=== PATIENT | female | born 1965 | race Caucasian/White ===

== ENCOUNTER 2018-04-04 05:24 | Inpatient (IN) | payer OTHER ==
[~2018-04-04] VITALS: Ht 172.7 cm; Wt 56.2 kg
[2018-04-04 05:24] VITALS: BP 194/115
--- NOTE | 2018-04-04 05:24 | NUR ---
Patient noted to have existing wounds upon arrival to ER. Photos taken of wound and placed in chart. Wound covered with dressing. Physician informed.
--- NOTE | 2018-04-04 05:24 | NUR ---
Patient BIBA BLS accompanied by [place] [employer], transferred to bed 5. RN evaluating patient at bedside.
--- NOTE | 2018-04-04 05:28 | NUR ---
Dr. Rodriguez evaluating patient at bedside.
--- NOTE | 2018-04-04 05:30 | NUR ---
PT BIB AMBULANCE FROM [facility] FOR CELLULITIS ON R GREAT TOE. PT REPORTS PAIN AT 2/10, PT UNABLE TO DESCRIBE PAIN. TOE IS SWOLLEN, DISCOLORED, WITH OPEN WOUND ON DORSAL SURFACE OF GREAT TOE THAT WRAPS IN BETWEEN 1ST AND 2ND TOE, MINIMAL PURULENT DRAINAGE PRESENT, SLIGHT ODOR PRESENT. WOUND MEASURES [id number]. GEO PUT PT ON 5150 HOLD FOR GD. SECURITY TOOK PT MIGUE MEIER SITTING 1-1. ER TO SEE PT. SAFETY PRECAUTIONS IN PLACE. WILL CONTINUE TO MONITOR.
[2018-04-04] MEDS ORDERED: PIPERACILLIN/TAZOBACTAM 3.375 GM in DEXTROSE 5% 50 ML IV ONE (05:35)
[2018-04-04] MEDS ORDERED: VANCOMYCIN 1,000 MG in DEXTROSE 5% 250 ML IV ONE (05:35)
[2018-04-04] MEDS ORDERED: NACL 0.9% 1,000 ML IV ONE (05:40)
[2018-04-04] MEDS ORDERED: METF850T PO (05:48)
[2018-04-04] MEDS ORDERED: PIPERACILLIN/TAZOBACTAM 3.375 GM VIAL IV ONE (05:49)
[2018-04-04] MEDS ORDERED: CLON0.1T42 PO (05:49)
[2018-04-04] MEDS ORDERED: DOCU1POW (05:51)
[2018-04-04] MEDS ORDERED: RANI150C PO (05:51)
[2018-04-04] MEDS ORDERED: RANI15SY PO (05:51)
[2018-04-04] MEDS ORDERED: IBUP-2213 PO (05:53)
[2018-04-04] MEDS ORDERED: LOSA50TA66 PO (05:54)
[2018-04-04] MEDS ORDERED: SIMV20TA1 PO (05:55)
[2018-04-04] MEDS ORDERED: ASPI81EC98 PO (05:56)
[2018-04-04 06:32] LABS: APPEARANCE,URINE HAZY (CLEAR); COLOR,URINE YELLOW (YELLOW); UGLUCOSE 3+ (NEGATIVE)
[2018-04-04 06:33] LABS: BILIRUBIN,URINE NEGATIVE (NEGATIVE); BLOOD, URINE 1+ (NEGATIVE); LEUKOCYTE ESTERASE ,URINE TRACE (NEGATIVE); NITRITE, URINE POSITIVE (NEGATIVE)
[2018-04-04 06:45] LABS: BASOPHILS # (AUTO) 0.1 K/uL (0.00-0.22); BASOPHILS % (AUTO) 0.8 % (0.0-2.0); EOSINOPHILS # (AUTO) 0.1 K/uL (0-0.4); EOSINOPHILS % (AUTO) 0.9 % (0.0-4.0); HEMATOCRIT 29.3 % (36-48); HEMOGLOBIN 9.7 g/dL (12.0-16.0); LYMPHOCYTES # (AUTO) 1.6 K/uL (2.5-16.5); LYMPHOCYTES % (AUTO) 15.3 % (20.5-51.1); MEAN CORPUSCULAR HEMOGLOBIN 30 pg (27-31); MEAN CORPUSCULAR HGB CONC 33 g/dL (33-37); MEAN CORPUSCULAR VOLUME 90.2 fL (80-94); MONOCYTES # (AUTO) 0.5 K/uL (0.8-1.0); MONOCYTES % (AUTO) 4.6 % (1.7-9.3); NEUTROPHILS # (AUTO) 8.3 K/uL (1.8-7.7); NEUTROPHILS % (AUTO) 78.4 % (42.2-75.2); PLATELET COUNT (AUTO) 432 K/uL (140-450); RED BLOOD CELL COUNT(AUTO) 3.24 MIL/uL (4.20-5.40); RED CELL DISTRIBUTION WIDTH 13.3 % (11.6-13.7); WHITE BLOOD COUNT (AUTO) 10.5 K/uL (4.8-10.8)
[2018-04-04] MEDS ORDERED: VANCOMYCIN 1,000 MG VIAL ONE (06:45)
[2018-04-04 06:49] LABS: RBC,URINE 3-10 (FEW) /HPF (0-5)
[2018-04-04 06:52] LABS: ANION GAP 11.9 (8-16); CARBON DIOXIDE 28.2 mmol/L (21-32); CHLORIDE 100 mmol/L (98-107); CREATININE 1.2 mg/dL (0.6-1.3); GFR ARICAN-AMERICAN 60 mL/min (>90); GLUCOSE 270 mg/dL (74-106); POTASSIUM 4.1 mmol/L (3.5-5.1); SODIUM SERUM 136 mmol/L (136-145); UREA NITROGEN, BLOOD 25 mg/dL (7-18)
--- NOTE | 2018-04-04 06:55 | NUR ---
Patient noted to have existing wounds upon arrival to ER. Photos taken of wound and placed in chart. Wound covered with dressing. Physician informed.
[2018-04-04 06:57] LABS: ALBUMIN 3.1 g/dL (3.4-5.0); ASPARTATE AMINOTRANSFERASE 16 U/L (15-37); TOTAL BILIRUBIN 0.2 mg/dL (0.0-1.0)
[2018-04-04 06:58] LABS: SALICYLATE < 2.8 mg/dL (2.8-20.0)
[2018-04-04 06:59] LABS: ACETAMINOPHEN < 0.5 ug/ml (10-30)
[2018-04-04 07:06] LABS: BARBITURATE, URINE NEG. ng/ml (NEG <=200); BENZODIAZEPINE, URINE NEG. ng/mL (NEG <=200); CANNABINOID, URINE NEG. ng/mL (NEG <=50); COCAINE, URINE NEG. ng/mL (NEG <=300); OPIATE, URINE NEG. ng/mL (NEG <=2000); PHENCYCLIDINE SCREEN,URINE NEG. ng/mL (NEG <=25)
--- NOTE | 2018-04-04 07:19 | NUR ---
GAVE REPORT TO LOVE ALMARAZ
--- NOTE | 2018-04-04 07:31 | NUR ---
Pt resting on bed. EMT at bedside.
[2018-04-04] MEDS ORDERED: ONDANSETRON 4 MG/2 ML VIAL IVP PRN (08:00)
[2018-04-04] MEDS ORDERED: HYDROcodone/APAP 5/325 MG 1 TAB TAB PO PRN ×2 (08:00)
[2018-04-04] MEDS ORDERED: LORazepam 2 MG/ML VIAL IVP PRN (08:00)
[2018-04-04] MEDS ORDERED: DEXTROSE 50% 50 ML SYR IVP PRN (08:00)
[2018-04-04] MEDS ORDERED: cloNIDine 0.1 MG TAB PO PRN (08:00)
[2018-04-04] MEDS ORDERED: ACETAMINOPHEN 325 MG TAB PO PRN (08:00)
--- NOTE | 2018-04-04 08:34 | NUR ---
PT TAKEN TO MED FLOOR BY RUFINA ALEMAN AND EMT EFRAÍN
[2018-04-04 08:40] VITALS: BP 159/69
--- NOTE | 2018-04-04 08:40 | NUR ---
RECEIVED REPORT FROM ED RUFINA ALEMAN. PT IN STABLE CONDITION. AOX3. DX RIGHT TOE OSTEOMYELITIS WITH OPEN WOUND. DRESSING APPLIED IN ED C/D/I. PT STATES SHE HIT HER RT BIG TOE THIS MORNING BUT THERE WAS A CHRONIC WOUND THERE BEFORE. SCAB ON LLE. SEEN AMBULATING FROM GURNEY TO BED WITH ASSIST. PT IS LEGALLY BLIND. LEGALLY BLIND SIGN PLACED ON WALL BY BEDSIDE. NO C/O PAIN OR DISCOMFORT AT THIS TIME. ALL SAFETY PRECAUTIONS IN PLACE, WILL CONTINUE TO MONITOR. Addendum: 04/04/18 at 1728 by Catalina Gloria Meng, RN IV SITE PATENT AND ASYMPTOMATIC, ON SL.
--- NOTE | 2018-04-04 08:44 | NUR ---
Patient will be admitted to care of DR KARIMI. Admited to [facility]. Will go to room 110 B. Belongings list completed. Report to RUFINA FRENCH.
[2018-04-04] MEDS ORDERED: NON-FORMULARY ITEM (Ranitidine HCl (Ranitidine Hcl) 1 CAP) PO SCH (09:00)
[2018-04-04] MEDS ORDERED: ENOXAPARIN 40 MG/0.4 ML SYR SUBQ SCH (09:00)
[2018-04-04] MEDS: DOCUSATE 100 MG/10 ML UDC PO SCH ×2 (10:19→20:38)
[2018-04-04] MEDS: NACL 0.9% 1,000 ML IV SCH (10:19)
[2018-04-04] MEDS: FAMOTIDINE 20 MG TAB PO SCH ×2 (10:20→20:38)
[2018-04-04] MEDS: LOSARTAN 50 MG TAB PO SCH (10:20)
--- NOTE | 2018-04-04 10:39 | NUR ---
CALLED AND ASKED SECURITY TO BRING PATIENT BELONGINGS TO FLOOR. PT NEEDS CELLPHONE TO CALL FAMILY. COLD MILL OPERATOR ALESSIA GABRIEL.
--- NOTE | 2018-04-04 10:53 | NUR ---
FIELD ASSISTANT HERE TO SEE PATIENT.
[2018-04-04] MEDS: INSULIN LISPRO SLIDING SCALE 100 UNITS/ML VIAL SUBQ PRN ×3 (11:57→20:55)
[2018-04-04] MEDS: BLOOD GLUCOSE MONITORING 1 DEV DEV FS SCH ×3 (11:57→20:38)
--- NOTE | 2018-04-04 13:31 | NUR ---
AD TERMINAL MAKEUP OPERATOR HERE FOR US VENOUS AND ARTERIAL.
--- NOTE | 2018-04-04 13:36 | NUR ---
PATIENT HAS BEEN SCREENED AND CATEGORIZED HIGH NUTRITION RISK. PATIENT WILL BE SEEN WITHIN 1-2 DAYS OF ADMISSION. 04/05/18 04/06/18 CLAIRE BORJA MBA, RD
[2018-04-04 16:00] VITALS: BP 135/66
--- NOTE | 2018-04-04 19:20 | NUR ---
ENDORSED POC TO RN CLINICAL REVIEW RN KAUSHIK AT BEDSIDE. PT IN STABLE CONDITION.
--- NOTE | 2018-04-04 19:22 | NUR ---
RECEIVED PT IN STABLE CONDITION FROM AM NURSE. AWAKE ,ALERT AND ORIENTED . ,MED SURG PT. ON FALL PRECAUTION DUE TO WEAKNESS ON THE RT FOOT AND LEGALLY BLIND. HAS IVF INFUSING WELL ON THE RT FA #[id number]. CLEAR AND PATENT. RT FOOT WITH DRESSING DRY AND INTACT. PLAN OF CARE DISCUSSED AND VERBALIZED UNDERSTANDING. BED ON LOW POSITION. FREQUENT ROUNDS NEEDED. CALL LIGHT PLACED WITHIN EASY REACH. WILL CONTINUE TO MONITOR.
[2018-04-04] MEDS: SIMVASTATIN 20 MG TAB PO SCH (20:39)
--- NOTE | 2018-04-04 20:45 | NUR ---
ASSISTED UP TO THE BATHROOM. VOIDED. THEN BACK TO BED WITH STANDBY ASSISTANCE.
--- NOTE | 2018-04-04 20:55 | NUR ---
BLOOD SUGAR WAS CHECKED RESULT 254. INSULIN COVERAGE GIVEN SUBQ, PT HAD HER OWN SANDWICH FOR HS SNACK. WILL CONTINUE TO MONITOR.
--- NOTE | 2018-04-04 22:00 | NUR ---
PT SLEEPING AT THIS TIME. NO S/S OF ANY DISCOMFORT NOTED.
--- NOTE | 2018-04-04 23:00 | NUR ---
SLEEPING WELL. NO S/S PAIN NOR DISCOMFORT. WILL CONTINUE TO MONITOR.
[2018-04-04 23:11] VITALS: BP 155/77
--- NOTE | 2018-04-04 23:35 | NUR ---
PT VERY UNSTEADY , LEGALLY BLIND. PROVIDED A BEDSIDE COMMODE. INSTRUCTED PT TO STILL CALL IF NEED TO GET UP . VERBALIZED UNDERSTANDING.
--- NOTE | 2018-04-05 01:00 | NUR ---
PT SLEEPING WELL AT THIS TIME. NO S/S OF APIN NOTED. WILL CONTINUE TO MONITOR.
--- NOTE | 2018-04-05 03:00 | NUR ---
SLEEPING WELL AT THIS TIME. NO S/S OF ANY DISCOMFORT NOR PAIN NOTED.
--- NOTE | 2018-04-05 05:00 | NUR ---
ASSISTED UP TO THE BSC. VOIDED WELL.
[2018-04-05] MEDS: NACL 0.9% 1,000 ML IV SCH (06:00)
--- NOTE | 2018-04-05 06:00 | NUR ---
TRANSFERRED TO ROOM 124 A. BED ALARM ON AND IN LOWEST POSITION. BSC AND CALL LIGHT PLACED WITHIN EASY REACH. INSTRUCTED TO CALL,NOT TO GET UP WITHOUT ANY NURSE IN ATTENDANCE.
[2018-04-05] MEDS: BLOOD GLUCOSE MONITORING 1 DEV DEV FS SCH ×4 (06:26→20:19)
[2018-04-05] MEDS: INSULIN LISPRO SLIDING SCALE 100 UNITS/ML VIAL SUBQ PRN ×3 (06:29→17:26)
--- NOTE | 2018-04-05 06:29 | NUR ---
BLOOD SUGAR THIS AM 232. 4 UNITS HUMALOG SUBQ GIVEN.
[2018-04-05 07:05] LABS: BASOPHILS # (AUTO) 0.1 K/uL (0.00-0.22); BASOPHILS % (AUTO) 1.1 % (0.0-2.0); EOSINOPHILS # (AUTO) 0.1 K/uL (0-0.4); EOSINOPHILS % (AUTO) 2.9 % (0.0-4.0); HEMATOCRIT 27.9 % (36-48); HEMOGLOBIN 9.1 g/dL (12.0-16.0); LYMPHOCYTES # (AUTO) 1.8 K/uL (2.5-16.5); LYMPHOCYTES % (AUTO) 35.7 % (20.5-51.1); MEAN CORPUSCULAR HEMOGLOBIN 30 pg (27-31); MEAN CORPUSCULAR HGB CONC 33 g/dL (33-37); MEAN CORPUSCULAR VOLUME 90.7 fL (80-94); MONOCYTES # (AUTO) 0.4 K/uL (0.8-1.0); MONOCYTES % (AUTO) 7.3 % (1.7-9.3); NEUTROPHILS # (AUTO) 2.6 K/uL (1.8-7.7); PLATELET COUNT (AUTO) 364 K/uL (140-450); RED BLOOD CELL COUNT(AUTO) 3.08 MIL/uL (4.20-5.40); RED CELL DISTRIBUTION WIDTH 13.5 % (11.6-13.7)
--- NOTE | 2018-04-05 07:18 | NUR ---
ENDORSED PT IN STABLE CONDITION TO AM NURSE.
--- NOTE | 2018-04-05 07:20 | NUR ---
RECEIVED PT FROM SENIOR MECHANICAL DEVELOPMENT ENGINEER NURSEKAUSHIK, PT IS LEGALLY BLIND AND IS AWAKE AND SEATED ON THE BED WITH SIDE RAILS UP AND CALL LIGHT WITHIN REACH, FALL PRECAUTION ENFORCED, DRESSING BANDAGE NOTED ON THE RT BIG TOE. PT HAS AN IV LINE ON THE RT FA G. 22 WITH NS AT 50ML/HR INFUSING AND INTACT. PT DENIES PAIN AND NO SOB NOTED. BEDSIDE COMMODE IN PLACE AND NO SIGN OF DISTRESS NOTED AND WILL CONTINUE TO MONITOR PT.
[2018-04-05 07:33] LABS: ALBUMIN 2.4 g/dL (3.4-5.0); ANION GAP -3.9 (8-16); CARBON DIOXIDE 28.8 mmol/L (21-32); CREATININE 1.1 mg/dL (0.6-1.3); MAGNESIUM 1.7 mg/dL (1.8-2.4); PHOSPHORUS 3.5 mg/dL (2.5-4.9); POTASSIUM 3.9 mmol/L (3.5-5.1); TOTAL BILIRUBIN 0.3 mg/dL (0.0-1.0)
[2018-04-05 08:00] VITALS: BP 156/77
[2018-04-05] MEDS: FAMOTIDINE 20 MG TAB PO SCH ×2 (09:18→20:20)
[2018-04-05] MEDS: ASPIRIN 81 MG TAB.CHEW PO SCH (09:19)
[2018-04-05] MEDS: DOCUSATE 100 MG/10 ML UDC PO SCH ×2 (09:19→20:20)
[2018-04-05] MEDS: LOSARTAN 50 MG TAB PO SCH (09:19)
--- NOTE | 2018-04-05 09:32 | NUR ---
PT IS AWAKE AND SEATED ON THE BED, MEDICATIONS GIVEN AND PT TOLERATED IT. NO SIGN OF DISTRESS NOED AND WILL CONTINUE TO MONITOR PT.
[2018-04-05] MEDS ORDERED: MAG SULF 2000 MG/WATER PREMIX 50 ML IV PRN (09:45)
[2018-04-05] MEDS ORDERED: VANCOMYCIN PER PHARMACY MC PRN (10:15)
[2018-04-05] MEDS ORDERED: PIPER/TAZO 3.375GM/D5W PREMIX 50 ML IV SCH (12:00)
--- NOTE | 2018-04-05 12:15 | NUR ---
PT IS AWAKE AND BLOOD GLUCOSE WAS CHECKED AND RESULT IS 275, 6 UNITS OF INSULIN WAS GIVEN ON THE LEFT UA, PT' WAS ASSISTED TO EAT HER LUNCH. NO SIGN OF DISTRESS NOTED AND WILL CONTINUE TO MONITOR PT.
[2018-04-05] MEDS: PIPER/TAZO 3.375GM/D5W PREMIX 50 ML IV SCH ×2 (12:58→17:22)
[2018-04-05] MEDS: VANCOMYCIN 500 MG in NACL 0.9% 100 ML IV SCH (14:20)
[2018-04-05 16:00] VITALS: BP 117/64
--- NOTE | 2018-04-05 17:27 | NUR ---
PT IS AWAKE AND SEATED ON THE BED, VITAL SIGNS TAKEN AND IV MEDICATION WAS GIVEN, BLOOD GLUCOSE CHECK DONE AND RESULT IS 153 AND INSULIN 2 UNITS AND PT TOLERATED IT. NO SIGN OF DISTRESS NOTED. WILL CONTINUE TO MONITOR PT.
--- NOTE | 2018-04-05 19:20 | NUR ---
ENDORSED PT TO POLICE WORKER NURSE, TIMA, FOR CONTINUITY OF CARE, PT IS STABLE AT THIS TIME.
--- NOTE | 2018-04-05 19:20 | NUR ---
RECEIVED ENDORSEMENT FROM ALONSO ALMARAZ DAYSHIFT NURSE AT BEDSIDE FOR CONTINUITY OF CARE, PT IN STABLE CONDITION.
--- NOTE | 2018-04-05 20:00 | NUR ---
PT ASSISTED TO THE COMMODE AND BACK TO BED. BED LOW AND ALL FALLS PRECAUTIONS IN PLACE. V/S FOLLOWS T 98.1 P 66 R 18 B/P 157/82 02 96% ON R/A. PT FINGERSTICK IS 147 NO COVERAGE NEEDED.
[2018-04-05] MEDS: SIMVASTATIN 20 MG TAB PO SCH (20:20)
--- NOTE | 2018-04-05 21:00 | NUR ---
X-RAY AT BEDSIDE . PT GIVEN ALL SCHEDULED MEDS. ALL REQUESTED NEEDS ATTENDED.
--- NOTE | 2018-04-05 21:30 | NUR ---
PT GIVEN DIABETIC SCHEDULED SNACK AND REQUESTED TEA. PT AWARE OF NPO STATUS AFTER MIDNIGHT. ALL FALLS PRECAUTIONS IN PLACE, AND CALL MATHIS IN REACH.
--- NOTE | 2018-04-05 23:50 | NUR ---
PT V/S FOLLOWS T 97.5 P 68 R 18 B/P 173/95 02 97% ON R/A. PT GIVEN PRN CATAPRES PO/PRN FOR HTN. WILL CONTINUE TO MONITOR B/P. PT WAS ALSO ASSISTED TO COMMODE AND BACK. PT IN BED NO S/S OF PAIN OR DISTRESS. ALL FALLS PRECAUTIONS IN PLACE.
[2018-04-06] VITALS: BP 173/95
[2018-04-06] MEDS: VANCOMYCIN 500 MG in NACL 0.9% 100 ML IV SCH (00:32)
[2018-04-06] MEDS: PIPER/TAZO 3.375GM/D5W PREMIX 50 ML IV SCH ×5 (01:51→23:14)
[2018-04-06] MEDS: NACL 0.9% 1,000 ML IV SCH (02:00)
--- NOTE | 2018-04-06 03:02 | NUR ---
B/P RETAKEN ITS 163/74. WILL CONTINUE TO MONITOR B/P.
--- NOTE | 2018-04-06 05:47 | NUR ---
MARILYN HUNG ORDERED.
[2018-04-06] MEDS: BLOOD GLUCOSE MONITORING 1 DEV DEV FS SCH ×4 (06:54→21:11)
[2018-04-06] MEDS: INSULIN LISPRO SLIDING SCALE 100 UNITS/ML VIAL SUBQ PRN ×3 (06:55→21:11)
--- NOTE | 2018-04-06 07:02 | NUR ---
AM FINGERSTICK IS 202 PT GIVEN 4 UNITS HUMALOG COVERAGE. LAST B/P 125/70
[2018-04-06 07:20] LABS: BASOPHILS # (AUTO) 0.1 K/uL (0.00-0.22); BASOPHILS % (AUTO) 1.4 % (0.0-2.0); EOSINOPHILS # (AUTO) 0.1 K/uL (0-0.4); EOSINOPHILS % (AUTO) 2.5 % (0.0-4.0); HEMATOCRIT 26.7 % (36-48); HEMOGLOBIN 8.8 g/dL (12.0-16.0); LYMPHOCYTES # (AUTO) 1.6 K/uL (2.5-16.5); MEAN CORPUSCULAR HEMOGLOBIN 30 pg (27-31); MEAN CORPUSCULAR HGB CONC 33 g/dL (33-37); MEAN CORPUSCULAR VOLUME 90.9 fL (80-94); MONOCYTES # (AUTO) 0.4 K/uL (0.8-1.0); MONOCYTES % (AUTO) 6.9 % (1.7-9.3); NEUTROPHILS % (AUTO) 58.2 % (42.2-75.2); PLATELET COUNT (AUTO) 332 K/uL (140-450); RED BLOOD CELL COUNT(AUTO) 2.94 MIL/uL (4.20-5.40); RED CELL DISTRIBUTION WIDTH 13.6 % (11.6-13.7); WHITE BLOOD COUNT (AUTO) 5.2 K/uL (4.8-10.8)
--- NOTE | 2018-04-06 07:28 | NUR ---
REPORT GIVEN TO PETEY RN AND GERARDO RN DAYSHIFT NURSES AT BEDSIDE FOPR CONTINUITY OF CARE, PT IN STABLE CONDITION.
--- NOTE | 2018-04-06 07:30 | NUR ---
RECEIVED BEDSIDE REPORT FROM MARINE EQUIPMENT SALES ENGINEER NURSE. PATIENT IS AOX4. NO SIGNS OF DISTRESS IN RA. R BIG TOE WOUND NOTICED. SCHEDULED FOR TOE AMPUTATION TODAY. IV SITE IS PATENT, INTACT AND CLEAN. DENIES OF PAIN. RESPIRATION IS EVEN, UNLABORED ON ROOM AIR. REVIEWED PLAN OF CARE WITH PATIENT. PATIENT VERBALIZED UNDERSTANDING. BED IN LOW POSITION. WILL CONTINUE TO MONITOR.
[2018-04-06 07:34] LABS: ALBUMIN 2.4 g/dL (3.4-5.0); ANION GAP 9.8 (8-16); CARBON DIOXIDE 28.4 mmol/L (21-32); CREATININE 1.2 mg/dL (0.6-1.3); POTASSIUM 4.2 mmol/L (3.5-5.1); TOTAL BILIRUBIN 0.6 mg/dL (0.0-1.0)
[2018-04-06 08:00] VITALS: BP 125/71
[2018-04-06] MEDS: ASPIRIN 81 MG TAB.CHEW PO SCH (09:00)
[2018-04-06] MEDS: DOCUSATE 100 MG/10 ML UDC PO SCH ×2 (09:00→21:05)
[2018-04-06] MEDS: LOSARTAN 50 MG TAB PO SCH (09:00)
[2018-04-06] MEDS: FAMOTIDINE 20 MG TAB PO SCH ×2 (09:00→21:05)
--- NOTE | 2018-04-06 09:52 | NUR ---
WITHHELD 0900 SCHEDULED MEDS DUE TO NPO. NO SIGNS OF DISTRESS. PATIENT IS RESPITE WORKER BY OR NURSES FOR PROCEDURE. .
--- NOTE | 2018-04-06 10:00 | NUR ---
OR NURSES AT BEDSIDE READY TO TAKE PATIENT DOWN FOR RIGHT TOE AMPUTATION SURGERY. WILL CONTINUE TO MONITOR.
[2018-04-06] MEDS ORDERED: LIDOCAINE 1% 50 ML ONE (10:08)
[2018-04-06] MEDS ORDERED: PROPOFOL 200 MG/20 ML VIAL IV ONE (10:17)
[2018-04-06] MEDS ORDERED: MIDAZOLAM 2 MG/2 ML VIAL ONE (10:20)
[2018-04-06] MEDS ORDERED: fentaNYL 0.05 MG/ML VIAL ONE (10:20)
[2018-04-06] MEDS ORDERED: ONDANSETRON 4 MG/2 ML VIAL IVP PRN (10:40)
[2018-04-06] MEDS ORDERED: HYDROmorphone 1 MG/ML AMP IVP PRN (10:40)
[2018-04-06] MEDS ORDERED: BLOOD GLUCOSE MONITORING 1 DEV DEV FS SCH (10:45)
--- NOTE | 2018-04-06 12:15 | NUR ---
PT CAME BACK FROM RIGHT TOE AMPUTATION PROCEDURE. VITAL SIGNS TAKEN AT BEDSIDE. TEMP. 96.5, BP 168/78, SPO2 99 ON RA, HEART RATE 60, RR 16. PATIENT DENIES OF PAIN. SHE SAID SHE IS HUNGRY. CALLED [facility] FOR FOOD TRAY. WILL CONTINUE TO MONITOR.
--- NOTE | 2018-04-06 12:45 | NUR ---
ADMINISTERED ZOSYN VIA IVP ORDERED. PATIENT TOLERATED WELL. NO SIGNS OF DISTRESS NOTED. WILL CONTINUE TO MONITOR.
--- NOTE | 2018-04-06 14:29 | NUR ---
04/06/18 RD INITIAL ASSESSMENT COMPLETED PLEASE REFER TO NUTRITION ASSESSMENT UNDER CARE ACTIVITY FOR ESTIMATED NUTRITIONAL NEEDS. 1. CONTINUE 60 GM CCHO DIET TOLERATED 2. RECOMMEND GLUCERNA BID 3. RD PROVIDED DM AND HTN NUTRITION EDUCATION 4. RD TO FOLLOW UP ON ADEQUATE PO INTAKE 5. RD TO FOLLOW-UP 3-5 DAYS, MODERATE RISK MAGALY CASTRO, RD
--- NOTE | 2018-04-06 15:14 | NUR ---
RECEIVED ORDER FOR SNF FOR WOUND CARE. SPOKE WITH FLORINA FROM [facility], SHE SAID TO TRY [facility]. FAXED INQUIRY TO [facility] [phone].
[2018-04-06] MEDS: VANCOMYCIN 750 MG in NACL 0.9% 250 ML IV SCH (15:25)
[2018-04-06 16:00] VITALS: BP 147/76
--- NOTE | 2018-04-06 17:40 | NUR ---
ADMINISTERED MEDS PER ORDER. PATIENT TOLERATED WELL. NO SIGNS OF DISTRESS. WILL CONTINUE TO MONITOR.
--- NOTE | 2018-04-06 19:10 | NUR ---
GAVE BEDSIDE REPORT TO LOADER OPERATOR SUPERVISOR NURSE FOR CONTINUITY OF CARE. PATIENT IS IN STABLE CONDITION, NO SIGNS OF DISTRESS.
--- NOTE | 2018-04-06 19:12 | NUR ---
RECEIVED PT AWAKE ON BED, AAOX4, LEGALLY BLIND, RT FOOT DRESSING DRY AND INTACT, ELEVATED WITH PILLOW, TOLERABLE PAIN 2/10 AT THIS TIME, IVF INFUSING WELL AT TKO RATE, PLAN OF ARE DISCUSS, SAFETY MEASURES IN PLACE, CALL MATHIS WITHIN REACH.
[2018-04-06] MEDS: SIMVASTATIN 20 MG TAB PO SCH (21:05)
--- NOTE | 2018-04-06 22:32 | NUR ---
PT USES BEDSIDE COMMODE WITH STANDBY ASSIST, VOIDED FREELY, ALL NEEDS ATTENDED.
[2018-04-07] VITALS: BP 153/70
[2018-04-07] MEDS: VANCOMYCIN 750 MG in NACL 0.9% 250 ML IV SCH ×2 (02:38→15:39)
[2018-04-07] MEDS: PIPER/TAZO 3.375GM/D5W PREMIX 50 ML IV SCH ×2 (05:27→12:12)
--- NOTE | 2018-04-07 06:05 | NUR ---
BLOOD SUGAR CHECKED WITH 151 RESULT, COVERAGE GIVEN, TOLERABLE PAIN AT THIS TIME, DRESSING DRY AND INTACT, MONITORED CLOSELY.
[2018-04-07] MEDS: INSULIN LISPRO SLIDING SCALE 100 UNITS/ML VIAL SUBQ PRN ×2 (06:09→12:16)
[2018-04-07 07:18] LABS: BASOPHILS % (AUTO) 0.6 % (0.0-2.0); EOSINOPHILS # (AUTO) 0.1 K/uL (0-0.4); HEMATOCRIT 28.3 % (36-48); HEMOGLOBIN 9.4 g/dL (12.0-16.0); LYMPHOCYTES # (AUTO) 1.6 K/uL (2.5-16.5); LYMPHOCYTES % (AUTO) 22.2 % (20.5-51.1); MEAN CORPUSCULAR HEMOGLOBIN 31 pg (27-31); MEAN CORPUSCULAR HGB CONC 33 g/dL (33-37); MEAN CORPUSCULAR VOLUME 91.8 fL (80-94); MONOCYTES # (AUTO) 0.5 K/uL (0.8-1.0); MONOCYTES % (AUTO) 6.6 % (1.7-9.3); NEUTROPHILS # (AUTO) 5.1 K/uL (1.8-7.7); NEUTROPHILS % (AUTO) 68.6 % (42.2-75.2); PLATELET COUNT (AUTO) 342 K/uL (140-450); RED BLOOD CELL COUNT(AUTO) 3.09 MIL/uL (4.20-5.40); RED CELL DISTRIBUTION WIDTH 13.5 % (11.6-13.7); WHITE BLOOD COUNT (AUTO) 7.4 K/uL (4.8-10.8)
--- NOTE | 2018-04-07 07:20 | NUR ---
PT SLEEPING, EASILY AROUSABLE, NO SIGNS OF DISTRESS, REPORT GIVEN TO RUFINA ANGELO FOR CONTINUITY OF CARE.
--- NOTE | 2018-04-07 07:23 | NUR ---
RECEIVED BEDSIDE REPORT FROM ELECTROENCEPHALOGRAPHIC TECHNICIAN NURSE. PATIENT IS AOX4. NO SIGNS OF DISTRESS IN RA. DENIES OF PAIN. R BIG TOE WOUND NOTICED. IV SITE IS PATENT, INTACT AND CLEAN. DENIES OF PAIN. RESPIRATION IS EVEN, UNLABORED ON ROOM AIR. ASSISTED PT TO USE THE BEDSIDE COMMODE TO URINATION. REVIEWED PLAN OF CARE WITH PATIENT. PATIENT VERBALIZED UNDERSTANDING. BED IN LOW POSITION. WILL CONTINUE TO MONITOR
[2018-04-07 07:32] LABS: ALBUMIN 2.5 g/dL (3.4-5.0); ANION GAP 9.7 (8-16); CARBON DIOXIDE 30.7 mmol/L (21-32); CREATININE 1.3 mg/dL (0.6-1.3); POTASSIUM 4.4 mmol/L (3.5-5.1); TOTAL BILIRUBIN 0.6 mg/dL (0.0-1.0)
[2018-04-07] MEDS: BLOOD GLUCOSE MONITORING 1 DEV DEV FS SCH ×4 (07:35→20:28)
[2018-04-07 08:00] VITALS: BP 177/84
[2018-04-07] MEDS: DOCUSATE 100 MG/10 ML UDC PO SCH ×2 (10:22→21:04)
[2018-04-07] MEDS: FAMOTIDINE 20 MG TAB PO SCH ×2 (10:23→21:04)
[2018-04-07] MEDS: ASPIRIN 81 MG TAB.CHEW PO SCH (10:23)
[2018-04-07] MEDS: LOSARTAN 50 MG TAB PO SCH (10:24)
--- NOTE | 2018-04-07 11:23 | NUR ---
RECEIVED ORDER FOR SNF FOR WOUND CARE. CALLED [facility] AND SPOKE WITH DAPHNIE. AUTH FOR [facility] [id number]. I CALLED ISABEL FROM [facility] AND INFORMED HER. THE AUTH FOR TRANSPORT IS [id number]. SHE CAN GO TO ROOM 700B UNDER DR. HERNANDEZ
--- NOTE | 2018-04-07 12:22 | NUR ---
ADMINISTERED SCHEDULED MEDS PER ORDER. PT TOLERATED WELL. NO SIGNS OF DISTRESS. PATIENT IS EATING LUNCH ON BED. WILL CONTINUE TO MONITOR.
--- NOTE | 2018-04-07 14:21 | NUR ---
WAS TOLD BY CHARGE NURSE, THAT THE PATIENT IS NOT DISCHARGED TODAY, PLAN TOMORROW. I CALLED [facility] AND DESIRAE BHANDARI FOR PLAN DISCHARGE TOMOROW. I CALLED DAPHNIE AT [facility] AND LEFT MESSAGE FOR HER, 89
[2018-04-07 16:00] VITALS: BP 155/85
--- NOTE | 2018-04-07 16:10 | NUR ---
PATIENT SITTING IN BED WATCHING TV. NO DISTRESS NOTED. DENIES ANY PAIN. SCHEDULED MEDICATIONS DUE GIVEN. WILL CONTINUE TO MONITOR.
--- NOTE | 2018-04-07 19:15 | NUR ---
RECEIVED ENDORSEMENT FROM SREEKANTH RN; PATIENT A/Ox4, LEGALLY BLIND, ABLE TO MAKE NEEDS KNOWN. NO S/SX OF SOB OR DISTRESS NOTED. IV SITE ON RIGHT ANTECUBITAL, 22 GAUGE, INTACT AND PATENT ON TKO RATE. RIGHT FOOT DRESSING DRY AND INTACT, ELEVATED WITH PILLOW. S/P RIGHT BIG TOE AMPUTATION. PLAN OF ARE DISCUSSED. CALL LIGHT WITHIN REACH. BED IN THE LOWEST POSITION. WILL CONTINUE TO MONITOR
--- NOTE | 2018-04-07 19:30 | NUR ---
PATIENT WAS SEEN BY DR. LAZARO; ASSESSED S/P RIGHT BIG TOE AMPUTATION SITE AND STITCHES.
--- NOTE | 2018-04-07 19:37 | NUR ---
GAVE REPORT TO BALANCE WHEEL HAND FILER NURSE FOR CONTINUITY OF CARE. PATIENT IN STABLE CONDITION.
[2018-04-07] MEDS: SIMVASTATIN 20 MG TAB PO SCH (21:04)
[2018-04-08] VITALS: BP 164/76
--- NOTE | 2018-04-08 03:04 | NUR ---
PATIENT HAD A MEDIUM BM, FORMED, SOFT, BROWN AT THIS TIME. Addendum: 04/08/18 at 0319 by Stan Chahal RN SO S/SX OF SOB OR DISTRESS NOTED
--- NOTE | 2018-04-08 04:07 | NUR ---
PT HAD A LARGE WELL FORMED BROWN BM, STATED FEELING MUCH BETTER AFTERWARDS, DENIES PAIN, MONITORED CLOSELY.
[2018-04-08] MEDS: INSULIN LISPRO SLIDING SCALE 100 UNITS/ML VIAL SUBQ PRN ×3 (06:17→16:54)
--- NOTE | 2018-04-08 07:10 | NUR ---
ENDORSED PATIENT TO AM SHIFT RN VICENTA. PATIENT IN STABLE CONDITION, WILL CONTINUE TO MONITOR.
--- NOTE | 2018-04-08 07:11 | NUR ---
Received report from pm nurse Benigno. Pt awake, verbally responsive, no signs of distress. Call light within reach.
[2018-04-08 07:22] LABS: BASOPHILS # (AUTO) 0.1 K/uL (0.00-0.22); BASOPHILS % (AUTO) 0.8 % (0.0-2.0); EOSINOPHILS # (AUTO) 0.2 K/uL (0-0.4); EOSINOPHILS % (AUTO) 2.3 % (0.0-4.0); HEMATOCRIT 27.5 % (36-48); HEMOGLOBIN 9.1 g/dL (12.0-16.0); LYMPHOCYTES # (AUTO) 1.8 K/uL (2.5-16.5); LYMPHOCYTES % (AUTO) 26.5 % (20.5-51.1); MEAN CORPUSCULAR HEMOGLOBIN 30 pg (27-31); MEAN CORPUSCULAR HGB CONC 33 g/dL (33-37); MEAN CORPUSCULAR VOLUME 91.5 fL (80-94); MONOCYTES # (AUTO) 0.5 K/uL (0.8-1.0); MONOCYTES % (AUTO) 7.3 % (1.7-9.3); NEUTROPHILS # (AUTO) 4.2 K/uL (1.8-7.7); NEUTROPHILS % (AUTO) 63.1 % (42.2-75.2); PLATELET COUNT (AUTO) 335 K/uL (140-450); RED CELL DISTRIBUTION WIDTH 13.4 % (11.6-13.7); WHITE BLOOD COUNT (AUTO) 6.7 K/uL (4.8-10.8)
[2018-04-08] MEDS: BLOOD GLUCOSE MONITORING 1 DEV DEV FS SCH ×3 (07:39→16:51)
[2018-04-08 07:56] LABS: ALBUMIN 2.7 g/dL (3.4-5.0); ANION GAP 6.4 (8-16); CARBON DIOXIDE 29.1 mmol/L (21-32); POTASSIUM 4.5 mmol/L (3.5-5.1); TOTAL BILIRUBIN 0.5 mg/dL (0.0-1.0)
[2018-04-08 08:00] VITALS: BP 140/72
[2018-04-08] MEDS: DOCUSATE 100 MG/10 ML UDC PO SCH (09:36)
[2018-04-08] MEDS: ASPIRIN 81 MG TAB.CHEW PO SCH (09:36)
[2018-04-08] MEDS: FAMOTIDINE 20 MG TAB PO SCH (09:36)
[2018-04-08] MEDS: LOSARTAN 50 MG TAB PO SCH (09:36)
--- NOTE | 2018-04-08 10:15 | NUR ---
PT ABLE TO USE BEDSIDE COMMODE WITH GOOD SAFETY AWARENESS. PT HAS NO C/O PAIN OR DISCOMFORT. RIGHT FOOT DRESSING CLEAN, DRY, & INTACT. RIGHT FOREARM IV INTACT & ASYMPTOMATIC. CALL LIGHT WITHIN REACH.
[2018-04-08] MEDS ORDERED: CEPH-1019 PO (12:45)
[2018-04-08] MEDS ORDERED: LACT1CAP91 PO (12:45)
--- NOTE | 2018-04-08 14:00 | NUR ---
CM NOTE PER [facility] PH# [phone], PATIENT WILL BE PICKED UP AT 1900 TODAY GOING TO [facility]. VICENTA ALMARAZ AWARE.
--- NOTE | 2018-04-08 15:30 | NUR ---
PT SITTING UP IN BED, LISTENING TO RADIO. NO C/O DISCOMFORT. RESPIRATIONS EVEN & NONLABORED. CALL LIGHT WITHIN REACH.
[2018-04-08 16:00] VITALS: BP 153/72
--- NOTE | 2018-04-08 16:00 | NUR ---
TELEPHONE REPORT GIVEN TO DAVID, [facility] PER DAVID, PT WILL BE GOING TO ROOM 700B.
--- NOTE | 2018-04-08 17:30 | NUR ---
VERBAL DISCHARGE INSTRUCTIONS PROVIDED TO PT. VERBALIZED UNDERSTANDING. PT CALLED HER SON DIANA ON HER PERSONAL RAKAN & NOTIFIED RE: DISCHARGE PLANS TO [facility]. VERBALIZED UNDERSTANDING. RIGHT FOREARM IV DISCONTINUED.
--- NOTE | 2018-04-08 18:15 | NUR ---
RECEIVED CALL FROM [facility]; STATES PICK-UP WILL BE COMING AROUND 8PM.
--- NOTE | 2018-04-08 19:30 | NUR ---
REPORT GIVEN TO PM NURSE WARREN.
--- NOTE | 2018-04-08 19:31 | NUR ---
RECEIVED REPORT FROM DAY SHIFT NURSE VICENTA-RUFINA AT BEDSIDE. PT RESTING IN BED, AOX4- LEGALLY BLIND FROM BOTH EYES, ON ROOM AIR. NO IV SITE DUE TO AWAITING FOR TRANSPORT [facility] TO [facility] PT AND TAKE TO [facility]. DISCUSSED PLAN OF CARE AND PT VERBALIZED UNDERSTANDING. NO S/S OF RESPIRATORY DISTRESS OR DISCOMFORT NOTED AT THIS TIME. BED IN LOWEST POSITION, BED BREAKS ON, BOTH SIDE RAILS UP AND FALL PRECAUTIONS IN PLACE. BEDSIDE TABLE AND CALL LIGHT ARE WITHIN REACH. WILL CONTINUE TO MONITOR.
[2018-04-08 20:00] VITALS: BP 148/68
--- NOTE | 2018-04-08 20:00 | NUR ---
VITAL SIGNS TAKEN AND TOLERATED WELL. NO S/S OF RESPIRATORY DISTRESS OR DISCOMFORT NOTED AT THIS TIME. WILL CONTINUE TO MONITOR.
--- NOTE | 2018-04-08 20:05 | NUR ---
TRANSPORT [facility] ARRIVED AND TRANSPORTED PT TO [facility]. PT STABLE AT THIS TIME. NO S/S OF RESPIRATORY DISTRESS OR DISCOMFORT NOTED AT THIS TIME.
== END 2018-04-08 20:05 | DRG 305 ==
LOC: MED 05:24 → MTU 08:31
PROVIDERS: ADMIT Hospitalist; ATTEND Hospitalist
PROC: 0Y6M0Z9 Detachment at Right Foot, Partial 1st Ray, Open Approach (ICD-10-PCS; principal; 2018-04-06 09:30)
DX: E11.69 Type 2 diabetes mellitus with other specified complication (principal); E44.0 Moderate protein-calorie malnutrition; M86.171 Other acute osteomyelitis, right ankle and foot; E11.621 Type 2 diabetes mellitus with foot ulcer; E11.319 Type 2 diabetes mellitus with unspecified diabetic retinopathy without macular edema; N39.0 Urinary tract infection, site not specified; E78.00 Pure hypercholesterolemia, unspecified; I10 Essential (primary) hypertension; I16.0 Hypertensive urgency; K21.9 Gastro-esophageal reflux disease without esophagitis; B96.20 Unspecified Escherichia coli [E. coli] as the cause of diseases classified elsewhere; F41.9 Anxiety disorder, unspecified; Z98.42 Cataract extraction status, left eye; E78.5 Hyperlipidemia, unspecified; H54.8 Legal blindness, as defined in USA; L97.519 Non-pressure chronic ulcer of other part of right foot with unspecified severity; L02.611 Cutaneous abscess of right foot; F32.9 Major depressive disorder, single episode, unspecified; E11.65 Type 2 diabetes mellitus with hyperglycemia; F15.10 Other stimulant abuse, uncomplicated; Z68.1 Body mass index [BMI] 19.9 or less, adult; Z79.82 Long term (current) use of aspirin; Z79.899 Other long term (current) drug therapy; Z79.84 Long term (current) use of oral hypoglycemic drugs
CPT/HCPCS: 36415; 71045; 73630; 80053; 80202; 80305; 81001; 81025; 82948; 83036; 83735; 84100; 85025; 87040; 87070; 87075; 87081; 87086; 87186; 87205; 88304; 88305; 88311; 93005; 93925; 93971; 96365; 99285; G0480; J0690; J1644; J1815; J2001; J2250; J2543; J2704; J3010; J3370; J3475; J7030; J7060; Q0092